=== PATIENT | female | born 1940 | race Caucasian/White ===

== ENCOUNTER → 2016-10-16 | Outpatient (CLI) | payer MEDICARE, OTHER ==
[~2016-10-16] MED LIST: ACCUPRIL; ACCUPRIL PO; ACETAMINOPHEN PO; ASPIRIN81 M2 PO; ATENOLOL25 MG PO; ATORVASTATIN CA80 MG PO; BYSTOLIC10 MG PO; BYSTOLIC5 MG PO; CARTIA XT180 M1 PO; CELEBREX; CLOPIDOGREL75 MG PO; COLACE PO; COUMADIN5 MG PO; CRESTOR PO; DEXILANT30 MG PO; FERROUS SULFATE PO; FLEXERIL; FLEXERIL PO; FUROSEMIDE40 MG PO; GLUCOPHAGE500 M1 PO; GLUCOPHAGE500 MG PO; HYDROCODON-ACE1 EAC7 PO; HYDROCODON-ACE1 EACH PO; IRON1 TA1 PO; JANUVIA PO; KCL PO; LASIX PO; LEVAQUIN; LISINOPRIL20 MG PO; METFORMIN HCL500 M1 PO; METRONIDAZOLE PO; MOVANTIK25 MG; MULTI VITAMIN1 EACH PO; MULTI-DAY1 TAB PO; NEXIUM PO; NITROFURANTOIN100 M3 PO; NORVASC; NORVASC PO; OMEPRAZOLE40 M1 PO; ONDANSETRON ODT4 MG PO; PHENERGAN; PHENERGAN RC; PRINIVIL20 M1 PO; PROTONIX PO; TIZANIDINE HCL4 M1 PO; TYLENOL #3; VASOTEC10 MG PO; VESICARE PO; VITAMIN D1000 UNI1 PO; VITAMIN D1000 UNIT PO; VITAMIN D31000 UNI1 PO; WARFARIN SODIUM4 M1 PO; ZYRTEC
== END | disposition home or self-care (01) ==
LOC: CECH 12:14
DX: R60.0 Localized edema (principal); T71.9XXA Asphyxiation due to unspecified cause, initial encounter; I36.1 Nonrheumatic tricuspid (valve) insufficiency; I05.2 Rheumatic mitral stenosis with insufficiency; R94.39 Abnormal result of other cardiovascular function study; I51.7 Cardiomegaly; I10 Essential (primary) hypertension; Z95.1 Presence of aortocoronary bypass graft
CPT/HCPCS: 93306

== ENCOUNTER → 2016-11-14 | Outpatient (CLI) | payer MEDICARE, OTHER ==
[2016-11-14 11:53] LABS: GLOM FILT RATE Estimated 55.5 mL/min (>60); POTASSIUM 3.9 mmol/L (3.5-5.1)
== END | disposition home or self-care (01) ==
LOC: CLAB 10:30
PROVIDERS: Internal Medicine Cardiovascular Disease
DX: R60.9 Edema, unspecified (principal)
CPT/HCPCS: 36415; 80048

== ENCOUNTER → 2016-12-23 | Outpatient (CLI) | payer MEDICARE, OTHER ==
[2016-12-23 12:25] LABS: CREATININE SERUM 1.2 mg/dL (0.6-1.4); GLOM FILT RATE Estimated 44.5 mL/min (>60); POTASSIUM 4.9 mmol/L (3.5-5.1)
== END | disposition home or self-care (01) ==
LOC: CLAB 10:38
PROVIDERS: Internal Medicine Cardiovascular Disease
DX: R60.9 Edema, unspecified (principal)
CPT/HCPCS: 36415; 80048

== ENCOUNTER → 2017-01-08 | Outpatient (CLI) | payer MEDICARE, OTHER ==
--- NOTE | ~2017-01-08 | US77 ---
[facility] A Service of [facility] & [facility] RADIOLOGY TEXT RESULTS PATIENT: INDERJIT ALEGRIA LOCATION: [facility] : 44 UNIT #: [id number] AGE: [address]: Cammie Alves MD SEX: F ORDER DR: [id number] [facility] [address] [place], [place] [address] [id number] O MR#: [id number] Acc #: [id number] NAME: INDERJIT ALEGRIA : 1940 SEX: F STUDY DATE/TIME: 01/08/2017 13:34 UNIT: [facility] ROOM: STUDY DESCRIPTION: US Kidney Bilateral Complete Attending Physician: Tawanna Alves M.D. Referring Physician: Tawanna Alves M.D. Ordering Physician: Tawanna Alves M.D. Primary Care Physician: Milagro Quintanilla M.D. MEDICAL IMAGING REPORT This report is preliminary unless electronic signature is present EXAM Renal ultrasound INDICATIONS Diminished GFR. Patient has a history of renal stones on the right in 2017. TECHNIQUE Collazo-scale and color Doppler sonographic images were obtained through the kidneys and bladder. FINDINGS Right kidney is normal in appearance, no solid or cystic renal masses are seen and there is no hydronephrosis. Bladder is incompletely distended, but otherwise unremarkable. Patient does have a cyst arising from the left kidney inferior pole. No solid renal masses are seen. IMPRESSION Left renal cyst, otherwise unremarkable exam. Dictated by... Ines Marcos M.D. THIS IS AN ELECTRONICALLY VERIFIED REPORT Ines Marcos M.D. at 01/09/2017 2:44 PM AFF/psc TD: 01/09/2017 08:43 JOB #: [id number] MEDICAL IMAGING REPORT Page 1 of 1 COPY
[2017-01-08 13:12] LABS: URINE APPEARANCE CLEAR; URINE BILIRUBIN NEG (NEG); URINE BLOOD NEG (NEG); URINE COLOR YELLOW; URINE GLUCOSE NEG (NEG); URINE KETONE NEG (NEG); URINE LEUKOCYTE ESTERASE NEG (NEG); URINE NITRATE NEG (NEG); URINE PH 6.5 (5-8); URINE PROTEIN 2+ (NEG); URINE SPECIFIC GRAVITY 1.016 (1.003-1.035)
[2017-01-08 13:14] LABS: URBCS1 AUWI 0-2 /[HPF] (0-2); URINE BACTERIA AUWI NEG (NEGATIVE); URINE SQUAMOUS EPITHELIAL CELL NONE SEEN /[HPF]; UWBCS1 AUWI 0-2 (0-5)
[2017-01-08 13:16] LABS: URINE SOURCE CLEAN CATCH
[2017-01-08 13:27] LABS: URINE CREATININE 20.5 mg/dL
[2017-01-08 13:28] LABS: U PROTIEN QUANT CALCULATION 0.56 GM/24H (0.10-0.15); URINE 24 HOUR CREATININE CALC 0.4 G/24HR (0.7-2.0)
[2017-01-08 13:38] LABS: ALBUMIN SERUM 3.4 g/dL (3.5-5.0); BILIRUBIN,TOTAL 1.4 mg/dL (0.2-2.0); BUN/CREATININE RATIO 26.66; CALCIUM SERUM 8.9 mg/dL (8.4-10.2); CREATININE SERUM 1.2 mg/dL (0.6-1.4); GLOM FILT RATE Estimated 44.5 mL/min (>60); POTASSIUM 4.2 mmol/L (3.5-5.1); PROTEIN TOTAL SERUM 6.3 g/dL (6.0-8.3); URIC ACID 9.9 mg/dL (2.6-7.2)
[2017-01-09 23:02] LABS: COMPLEMENT C3 104 mg/dL (90-180); COMPLEMENT C4 21 mg/dL (16-47)
[2017-01-11 12:34] LABS: ANA SCREEN Negative (Negative); MYELOPEROXIDASE AB (PNL) <1.0 AI (<1.0); PROTEINASE-3 AB (PNL) <1.0 AI (<1.0)
== END | disposition home or self-care (01) ==
LOC: CGUS 01-03 12:45
PROVIDERS: Internal Medicine Nephrology
DX: N17.9 Acute kidney failure, unspecified (principal); N08 Glomerular disorders in diseases classified elsewhere; N28.1 Cyst of kidney, acquired
CPT/HCPCS: 36415; 76770; 80053; 81003; 82570; 84156; 84550; 86021; 86038; 86039; 86160; 86334